=== PATIENT | male | born 1980 | race Caucasian/White ===

== ENCOUNTER 2022-05-06 00:06 | Emergency (ER) | payer SELFPAY ==
[2022-05-06 00:11] VITALS: BP 155/107; PULSE 80; RESP 18; TEMP 36.7; O2SAT 99; BMI 26.1
--- NOTE | 2022-05-06 00:15 | W.ED.WOUNDLC ---
HPI - Wound/Laceration General: Chief Complaint: Wound/Laceration Stated Complaint: Cut left side of Face Time Seen by Provider: 05/06/22 00:15 History of Present Illness: 41-year-old male patient comes in today for a injury to his chin. Patient reports that he was using a snuff grinder and screener and the blade broke causing a laceration to his chin. Patient does admit to drinking some alcohol prior to coming to the ER due to his anxiety with needles. Patient cannot recall his last tetanus shot. Patient denies any chronic medical problems. Review of Systems General: Reports: 10 or more systems reviewed and unremarkable except in HPI and below Skin/Breast: Reports: new lesions (Laceration chin) Physical Exam Const: COMMON NORMALS: alert HENMT: COMMON NORMALS: atraumatic HEAD & SCALP: atraumatic FACE & SINUS: laceration (3 cm horizontal linear chin) Neck/C-Spine: COMMON NORMALS: full ROM Resp: COMMON NORMALS: normal respiratory effort and clear to auscultation bilaterally AUSCULTATION: clear to auscultation bilaterally Cardio: COMMON NORMALS: regular rate RATE: regular rate Extremity: COMMON NORMALS: normal to inspection Neuro: SENSORIUM/ORIENTATION: Yes alert Skin: TRAUMA: laceration (3 cm linear to chin) linear Procedures Laceration Laceration 1: Site: face (Chin) Size (cm): 3 Description: linear Depth: simple, single layer Local Anesthetic: lidocaine 1% Amount of anesthesia used (mL): 4 Pre-repair: wound explored, irrigated extensively and deep structures intact Skin layer closed with: vicryl Size (cm): 4-0 Number of sutures: 6 Technique: simple, interrupted (5) and horizontal mattress (1) Course Vital Signs: Vital signs: Vital Signs Temperature 98.1 F 05/06/22 00:43 Pulse Rate 82 05/06/22 00:43 Respiratory Rate 16 05/06/22 00:43 Blood Pressure 149/99 05/06/22 00:43 Pulse Oximetry 98 05/06/22 00:43 Oxygen Delivery Me thod 05/06/22 00:11 MDM - Wound/Laceration Medical Decision Making Patient comes in today for injury to the chin due to a machine malfunction. Patient was using a snuff grinder and screener and it broke causing a piece of the snuff grinder and screener to cut his chin. On exam patient has a 3 cm laceration to the chin no foreign body was noted no fracture was noted. Differential diagnosis includes need for prophylaxis tetanus, fracture, foreign body, laceration. Tetanus was updated. Wound was repaired with sutures. Patient was recommended to take cephalexin 500 twice a day for 7 days. Patient was recommended to have sutures removed in 7 days. Patient reports understanding of care plan and need for follow-up or return to the ER. Patient reported understanding of post procedure care. Discharge Plan Discharge Patient Disposition: Home Clinical Impression: Chin laceration Qualifiers: Encounter type: initial encounter Qualified Code(s): S01.81XA - Laceration without foreign body of other part of head, initial encounter Condition: Stable Prescriptions: New cephalexin 500 mg capsule 500 mg PO BID 7 Days Qty: 14 0RF Discharge Orders: Discharge ED (Routine); Ordered 05/06/22 Ordered By: David Wakefield Discharge Diet: Usual diet Discharge Activity: Increase activity as tolerated Patient Instructions: Facial Laceration (ED) Activity Restrictions/Additional Instructions: Keep wound clean and dry. Sutures can be removed in 7 days. It is very important for the next 2 days for the sutures to be kept as clean and dry as possible. After that the wound can be washed gently with mild soap and water. Avoid submersion underwater for long periods of time. Take antibiotic twice a day for the next 7 days. The sutures are absorbable but you can remove them within 7 to 10 days as long as the wound appears healed. Coding Level of Care Code ED Development Rep for Montrell Ross
[2022-05-06] MEDS: tetanus-dipt-pertussis 0.5 mL SDV IM (00:29)
[2022-05-06 00:43] VITALS: BP 149/99; PULSE 82; RESP 16; TEMP 36.7; O2SAT 98
[2022-05-06] MEDS: cephALEXin 500 mg Capsule PO (00:43)
== END 2022-05-06 00:44 | disposition home or self-care (01) ==
PROVIDERS: Emergency Provider Nurse Practitioner Family
DX: S01.81XA Laceration without foreign body of other part of head, initial encounter (principal); W20.8XXA Other cause of strike by thrown, projected or falling object, initial encounter; Z23 Encounter for immunization
CPT/HCPCS: 12013; 90471; 90715; 99283